=== PATIENT | male | born 1955 | race African-American/Black ===

== ENCOUNTER 2019-04-22 12:46 | Emergency (ER) | payer BC, MEDICARE ==
[~2019-04-22] VITALS: Ht 182.9 cm; Wt 88.5 kg
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
[2019-04-22] MEDS ORDERED: LIDOcaine 1% w/epiNEPHrine 1:200,000 30ml vial IM ONE (14:45)
[2019-04-22] MEDS ORDERED: TETanus/Pertussis (Acell)/Diphther VAC/PF (Tdap-Adult) 0.5ml syringe IM ONE (14:45)
[2019-04-22] MEDS ORDERED: CEPH500C5 PO (15:15)
[2019-04-22] MEDS ORDERED: mupirocin 2% ointment 22GM TP STA (15:15)
[2019-04-22] MEDS ORDERED: TRAM50TA2 PO (15:15)
[2019-04-22 15:52] VITALS: BP 150/86
== END 2019-04-22 15:56 | disposition home or self-care (01) ==
LOC: ER 12:47
DX: S62.663B Nondisplaced fracture of distal phalanx of left middle finger, initial encounter for open fracture (principal); S62.665B Nondisplaced fracture of distal phalanx of left ring finger, initial encounter for open fracture; W45.8XXA Other foreign body or object entering through skin, initial encounter; Y93.89 Activity, other specified; Y92.89 Other specified places as the place of occurrence of the external cause; Y99.8 Other external cause status
CPT/HCPCS: 29130; 73130; 90471; 99283

== ENCOUNTER 2019-04-30 12:13 | Outpatient (CLI) | payer BC, MEDICARE ==
[~2019-04-30 12:13] MED LIST: CEPH500C5 PO; TRAM50TA2 PO
== END 2019-04-30 12:57 | disposition home or self-care (01) ==
LOC: ORTHO 12:13
PROVIDERS: ATTEND Orthopaedic Surgery
DX: S68.12 Partial traumatic metacarpophalangeal amputation of other and unspecified finger (principal); S68.123D Partial traumatic metacarpophalangeal amputation of left middle finger, subsequent encounter; X58.XXXD Exposure to other specified factors, subsequent encounter
CPT/HCPCS: G0463

== ENCOUNTER 2019-05-09 21:52 | Emergency (ER) | payer BC, MEDICARE ==
[~2019-05-09] VITALS: Ht 182.9 cm; Wt 88.6 kg
[2019-05-09] MEDS ORDERED: bacitracin 15gm ointment TP ONE (23:15)
[2019-05-09 23:58] VITALS: BP 149/84
== END 2019-05-10 00:02 | disposition home or self-care (01) ==
LOC: ER 21:53
DX: S90.851A Superficial foreign body, right foot, initial encounter (principal); Z79.2 Long term (current) use of antibiotics; Z79.899 Other long term (current) drug therapy; W45.8XXA Other foreign body or object entering through skin, initial encounter; Y93.89 Activity, other specified; Y92.89 Other specified places as the place of occurrence of the external cause; Y99.8 Other external cause status
CPT/HCPCS: 99284

== ENCOUNTER 2019-05-14 09:16 | Outpatient (CLI) | payer BC, MEDICARE ==
[~2019-05-14 09:16] MED LIST changes: +lidocaine 1%/epinephrine 1:100,000 injection 50ml vial ONE
[2019-05-14 09:19] VITALS: BP 155/91
== END 2019-05-14 09:50 | disposition home or self-care (01) ==
LOC: ORTHO 09:16
PROVIDERS: ATTEND Orthopaedic Surgery
DX: S61.213D Laceration without foreign body of left middle finger without damage to nail, subsequent encounter (principal); S61.215D Laceration without foreign body of left ring finger without damage to nail, subsequent encounter; X58.XXXD Exposure to other specified factors, subsequent encounter
CPT/HCPCS: G0463